=== PATIENT | female | born 1995 | race Caucasian/White ===

== ENCOUNTER → 2022-07-24 | Outpatient (CLI) | payer OTHER ==
[~2022-07-24] MED LIST: GUAI118L10 PO; IPRA30SP NS; OXYC1TAB11 PO; PREN-148 PO
--- NOTE | 2022-07-24 11:13 | Diagnostic Imaging Report ---
EXAMINATION: Left ankle MRI without contrast, 07/24/2022. TECHNIQUE: Multiplanar, multisequence [id number]-[id number] MRI of the left lower extremity was accomplished. INDICATION: Loose body in the ankle. Chronic ankle pain. Injury years ago. FINDINGS: The Achilles tendon appears unremarkable. Plantar fascia is unremarkable. The flexor and extensor tendons appear intact. Peroneal tendons are intact. Anterior and posterior inferior tibiofibular ligaments are intact. Anterior talofibular ligament is intact. Posterior talofibular ligament is intact. Deltoid ligament is unremarkable. Calcaneofibular ligament is intact. The visualized osseous structures demonstrate normal signal intensity. Ankle mortise is intact. IMPRESSION: 1. Unremarkable MRI of the ankle. Dictated by: Dictated on workstation # [id number]
== END ==
LOC: RAD 08:28
PROVIDERS: ATTEND Nurse Practitioner
DX: M24.072 Loose body in left ankle (principal)
CPT/HCPCS: 73721